=== PATIENT | female | born 1955 | race Caucasian/White ===

== ENCOUNTER 2024-07-28 01:36 | Emergency (ER) | payer MEDICARE, SELFPAY ==
[2024-07-28 01:37] VITALS: BP 146/84
[2024-07-28 01:56] LABS: % Basophils 0.3 % (0-2); % Eosinophils 0.1 % (0-6); % Immature Granulocytes 0.4 % (0-0.5); % Lymphocytes 11.5 % (20.5-51.1); % Monocytes 13.3 % (1.7-9.3); % Neutrophils 74.4 % (42.2-75.2); Absolute Lymphocytes 0.8 10^3/uL (1.2-3.4); Absolute Neutrophils 5.3 10^3/uL (1.4-6.5); Hematocrit 42.4 % (37.0-47.0); Hemoglobin 13.9 g/dL (12.0-16.0); Mean Corp Hgb Conc. 32.8 g/dL (33.0-37.0); Mean Corpuscular Hgb 28.8 pg (27.0-31.0); Mean Corpuscular Volume 87.8 fL (81.0-99.0); Mean Platelet Volume 9.6 fL (7.4-10.4); Nucleated Red Blood Cells % 0 %; Platelet Count 204 10^3/uL (130-400); Red Blood Cell Count 4.83 10^6/uL (4.20-5.40); Red Cell Dist. Width 13.7 % (11.5-14.5); White Blood Cell Count 7.1 10^3/uL (4.8-10.8)
[2024-07-28 02:09] LABS: ALT (SGPT) 20 U/L (0-35); AST (SGOT) 27 U/L (14-36); Albumin 3.9 g/dl (3.5-5.0); Alkaline Phosphatase 60 U/L (38-126); Blood Urea Nitrogen 12 mg/dl (7-17); Carbon Dioxide 27 mmol/L (22-30); Chloride 102 mmol/L (98-107); Glucose 125 mg/dl (70-99); Lipase 151 U/L (23-300); Potassium 3.6 mmol/L (3.5-5.1); Sodium 136 mmol/L (135-145); Total Bilirubin 0.3 mg/dl (0.2-1.3); Total Protein 6.6 g/dl (6.3-8.2); eGFR > 60.00
[2024-07-28 03:39] VITALS: BP 135/73
--- NOTE | 2024-07-28 03:53 | ED.GENMED ---
History of Present Illness
General
Chief Complaint: Abdominal Symptoms
Time Seen by Provider: 07/28/24 03:52
History of Present Illness
History of Present Illness:
TIME OF INITIAL ENCOUNTER: 4 AM
HPI: 3 days ago, the patient started having headaches, this is associated with some loose stools and some intermittent nausea. This evening she had rather significant abdominal pain however the pain is now markedly improved. She tried to take some
famotidine earlier. Her son had similar but less severe symptoms.
EXAM:
GENERAL: Well appearing in no distress
HEENT: Moist oral mucosa
CARDIOVASCULAR: No murmurs, normal heart rate, regular rhythm, No chest wall tenderness
PULMONARY: No respiratory distress, breath sounds are clear and equal
ABDOMEN: Soft with no peritoneal signs, no tenderness
NEUROLOGIC: Excellent strength all extremities, no coordination deficits
PSYCHIATRIC: Appropriate mental status, normal insight and judgement
EXTREMITIES: Nontender, no edema, moves all extremities equally
SKIN: No rash, no lesions
NUMBER AND COMPLEXITY OF PROBLEMS ADDRESSED AT THE ENCOUNTER
� Chronic conditions affecting care: Has had cholecystectomy and appendectomy
� Acute Exacerbation and/or Progression of Chronic Illness: This is an acute problem
� Differential Diagnosis includes: Viral syndrome, doubt bowel obstruction as patient had no vomiting and pain has resolved and was associated with diarrhea
AMOUNT AND/OR COMPLEXITY OF DATA TO BE REVIEWED AND ANALYZED
� I performed an independent evaluation of and my interpretation is:
EKG:
CT:
X-rays:
Laboratory Studies: White count and hemoglobin are normal, chemistries unremarkable, LFTs and lipase unremarkable
Other:
� Review of other/old records: I reviewed records, the patient was seen here with benzodiazepine dependence 2 years ago
� Clinical information was obtained by an independent historian: Spoke to at bedside
� Prescriptions/Medications Considered but not given:
� Further testing considered but not performed: Considered CT imaging however the patient has a soft nontender abdomen on examination
RISK OF COMPLICATIONS AND/OR MORBIDITY OR MORTALITY OF PATIENT MANAGEMENT
� Social determinants of health affecting care: Lives at home
� Discussion with other providers:
� Escalation of care including admission/observation vs risk of discharge considered: Will hold off on CT imaging as she has no tenderness on exam and has no significant ongoing pain. She states she has some nausea and will give
a dose of Zofran ODT.
ANY OTHER UPDATES:
6:10 AM: I reassessed patient, patient continues to feel well and wishes to go home. She has no ongoing abdominal pain. She overall is improved after Zofran ODT. Will give prescription for this as well.
Past History
Past History
ED Past Medical History: None
ED Past Surgical History: None
Phy Exam
Physical Exam
Physical Exam:
See HPI
Course
Orders/Labs/Results
Orders:
Orders
07/28/24 01:47
Complete Blood Count/With Diff Urgent
Comprehensive Metabolic Panel Urgent
Lipase Urgent
07/28/24 04:11
Ondansetron Orally Disint [Zofran Odt (Orally Disintegrating)] 4 mg PO NOW STA
Abnormal Lab Results
07/28/24
01:47
MCHC 32.8 L g/dL
(33.0-37.0)
Absolute Lymphs (auto) 0.8 L 10^3/uL
(1.2-3.4)
Absolute Monos (auto) 1.0 H 10^3/uL
(0.1-0.6)
Lymphocytes % 11.5 L %
(20.5-51.1)
Monocytes % 13.3 H %
(1.7-9.3)
Glucose 125 H mg/dl
(70-99)
07/28/24 01:47
07/28/24 01:47
Vital Signs
Initial and Last Documented VS:
Initial Vital Signs
Temp Pulse Resp BP Pulse Ox
37.2 C 85 20 146/84 96
07/28/24 01:37 07/28/24 01:37 07/28/24 01:37 07/28/24 01:37 07/28/24 01:37
Last Documented Vital Signs
Temp Pulse Resp BP Pulse Ox
37.2 C 72 18 136/74 92
07/28/24 01:37 07/28/24 05:45 07/28/24 05:45 07/28/24 05:00 07/28/24 05:30
*Critical Care Note
Total Time (30-74mins, 75-104mins- exclusive of procedures): Not Applicable
ED Attending Note
-
Portions of this chart may have been created with voice recognition software.� Occasional wrong word or��sound alike� substitutions may have occurred due to the inherent limitations of voice recognition software.
Discharge Plan
Departure
Patient Disposition: Home (Routine Discharge)
Date of Disposition: 07/28/24
Time of Disposition: 06:13
Patient with high blood pressure during this ER visit?: Yes
Discharge Problem:
Acute viral syndrome
Instructions: Abdominal Pain
Prescriptions:
New
ondansetron 4 mg tablet,disintegrating
4 mg PO Q6H PRN (Reason: nausea and vomiting) Qty: 14 0RF
Referrals:
Usha Yoder CRNP [Family Provider] -
Activity Restrictions/Additional Instructions:
Your blood work is normal. Return here if worse or other concerns.
Interventions
Interventions:
*Risk Screen - Suicide Last Done: 07/28/24 01:37
*General Assessment Last Done: 07/28/24 03:29
*Neglect/Abuse Screening Last Done: 07/28/24 01:37
ED- Fall Risk Assessment Last Done: 07/28/24 03:29
*ED COVID-19 Vaccine History Last Done: 07/28/24 03:29
RJ-Grboep-Welvzxtbko Assessment Last Done: 07/28/24 03:29
Discharge Date and Time
Print Language: [id number]
[2024-07-28 04:00] VITALS: BP 132/76
[2024-07-28] MEDS: ZOFRAN ODT (ORALLY DISINTEGRATING) 4 MG PO (04:24)
[2024-07-28 05:00] VITALS: BP 136/74
== END 2024-07-28 06:15 | disposition home or self-care (01) ==
LOC: EMR 01:36
PROVIDERS: EMERGENCY PHYSICIAN Emergency Medicine; FAMILY PHYSICIAN Registered Nurse
DX: B34.9 Viral infection, unspecified (principal)
CPT/HCPCS: 99283; 80053; 83690; 85025